=== PATIENT | female | born 1955 | race Caucasian/White ===

== ENCOUNTER 2017-01-14 17:52 | Emergency (ER) | payer OTHER ==
[~2017-01-14] VITALS: Ht 142.2 cm; Wt 90.0 kg
[2017-01-14 17:56] VITALS: Ht 142.2 cm; Wt 90.0 kg
[2017-01-14] MEDS ORDERED: morphine 4 MG/ML VIAL IM STA (19:23)
--- NOTE | 2017-01-14 19:43 | RADRPT ---
PROCEDURE: CT Head without. CLINICAL INDICATION: Occipital pain status post fall. TECHNIQUE: The study was performed utilizing a multi-slice, multidetector CT scanner. Direct spira l 1 mm axial sections were obtained through the head without the use of intravenous contrast materia l. 1 or more of the following dose reduction techniques were utilized: Automated exposure control, adjustment of the mA and/or kV according to patient's size, iterative reconstruction technique. Co titus and sagittal reformations were obtained. The images were reviewed on a PACS workstation. RADIATION DOSE: CTDIvol: 44.0 mGyDLP: 630.2 mGy-cm COMPARISON: No prior studies are available for comparison. FINDINGS: There is no intracranial hemorrhage, extra-axial fluid collection, mass lesion, midline shift or hyd rocephalus. The ventricles, sulci and cisterns are within normal limits. The white matter is unrem arkable. The ji-white matter differentiation is preserved. The basal cisterns are patent. The m idline structures are intact. The orbits, calvarium and extracranial soft tissues are normal in nakita earance. The visualized paranasal sinuses, mastoid air cells and middle ear cavities are normally ae rated. IMPRESSION: 1. No acute intracranial abnormality. No intracranial hemorrhage, extra-axial fluid collection, ma ss lesion or hydrocephalous. RPTAT: HGAS .Conrado Fischer MD, MD Date Time Electronically viewed and signed by .Conrado Fischer MD, MD on 01/14/2017 19:42 .S/
--- NOTE | 2017-01-14 20:06 | RADRPT ---
PROCEDURE: CT Cervical Spine. CLINICAL INDICATION: Pain status post fall TECHNIQUE: A CT of the cervical spine was performed on a multi-slice CT scanner utilizing high-res olution axial imaging from the skull base through the cervical thoracic junction. Sagittal, coronal , and multiplanar reformatted images were made. CTD I: 22.07 mGy and DLP: 391.5 mGy-cm One or more of the following dose reduction techniques were used: Automated exposure control. Adjustment of the mA and/or kV according to patient size. Use of iterative reconstruction technique. COMPARISON: None FINDINGS: There is straightening of the cervical lordosis. No vertebral body subluxation is seen. No fracture s are evident. The posterior elements are normally aligned. The surrounding soft tissues are kalyani l in appearance. The craniocervical junction is unremarkable. C2-C3: The disc height is maintained. Small uncovertebral spurring and mild facet arthropathy are s een at this level. There is mild to moderate bilateral neural foraminal stenosis. The central canal remains adequately patent. C3-C4: The disc height is maintained. Disc osteophyte complex, prominent left-sided uncovertebral s purring and severe left facet arthropathy are seen at this level. There is severe left and mild to m oderate right neural foraminal stenosis. The central canal remains adequately patent. C4-C5: The disc height is maintained. Broad-based central disc protrusion, prominent uncovertebral spurring and moderate right facet arthropathy are seen at this level. There is moderate to severe bi lateral neural foraminal stenosis. There is mild to moderate central canal stenosis. C5-C6: There is mild disc height loss. Disc osteophyte complex, prominent uncovertebral spurring, a nd mild facet arthropathy are seen at this level. There is severe left and moderate to severe right neural foraminal stenosis. There is mild to moderate central canal stenosis. C6-C7: There is moderate disc height loss with discogenic endplate changes. Disc osteophyte complex , prominent uncovertebral spurring and mild facet arthropathy are seen at this level. There is moder ate to severe bilateral neural foraminal stenosis. There is mild central canal stenosis. C7-T1: The disc height is maintained. Central canal and bilateral neural foramina are adequately pa tent. IMPRESSION: 1. No acute fracture or traumatic malalignment. 2. Multilevel moderate to severe central canal stenosis at C3-C4 through C6-C7, as described above. 3. Mild to moderate central canal stenosis at C4-C5 and C5-C6. Mild central canal stenosis at C6-C7 . RPTAT: HHO .Tatiana Coto MD, Date Time Electronically viewed and signed by .Tatiana Coto MD, on 01/14/2017 20:05 .O/
[2017-01-14] MEDS ORDERED: HYDR-906 PO (20:12)
[2017-01-14] MEDS ORDERED: NAPR-688 PO (20:14)
[2017-01-14] MEDS ORDERED: KETOROLAC 60 MG INJ IM STA (20:15)
--- NOTE | 2017-01-14 20:18 | ERD ---
ER Documentation Chief Complaint Date/Time DATE: 01/14/17 TIME: 20:16 Chief Complaint right arm pain/injury HPI 11-year-old female presents primarily with right shoulder pain after she slipped while stepping out of the first step of a stepladder. She is with family. She states that she did hit the back of her head but did not lose consciousness. She has pain in her right upper trapezius area radiating down to her shoulder. She is already wearing an arm sling. Denies nausea vomiting or neurological deficits. Would like a shot for the pain peer ROS All systems reviewed and are negative except as per history of present illness. Medications Home Meds Active Scripts Naproxen* (Naproxen*) 500 Mg Tablet, 500 MG PO BID Y for PAIN, #14 TAB Prov:YURIYFARAZMARY DO 01/14/17 Hydrocodone/Acetaminophen (Gunter 5-325 Tablet) 1 Each Tablet, 1 EACH PO Q6, #10 TAB Prov:YURIYFARAZMARY DO 01/14/17 Allergies Allergies: Coded Allergies: Penicillins (Verified Allergy, Intermediate, rash, 01/14/17) PMhx/Soc Medical and Surgical Hx: pt denies Medical Hx, pt denies Surgical Hx History of Surgery: Yes (hysterectomy '94) Anesthesia Reaction: No Hx Neurological Disorder: No Hx Respiratory Disorders: No Hx Cardiac Disorders: Yes (hyperlipidemia) Hx Psychiatric Problems: No Hx Miscellaneous Medical Probl: No Hx Alcohol Use: No Hx Substance Use: No Hx Tobacco Use: No Smoking Status: Never smoker Physical Exam Vitals Vital Signs Date Time Temp Pulse Resp B/P Pulse Ox O2 Delivery O2 Flow Rate FiO2 01/14/17 17:56 98.5 83 19 138/66 96 Physical Exam Const: [] Head: Atraumatic Eyes: Normal Conjunctiva ENT: Normal External Ears, Nose and Mouth. Neck: Full range of motion..~ No meningismus. Resp: Clear to auscultation bilaterally Cardio: Regular rate and rhythm, no murmurs Abd: Soft, non tender, non distended. Normal bowel sounds Skin: No petechiae or rashes Back: No midline or flank tenderness Ext: No cyanosis, or edema Neur: Awake and alert Psych: Normal Mood and Affect Results 24 hrs Current Medications Medications (Trade) Dose Ordered Sig/Berny Route PRN Reason Start Time Stop Time Status Last Admin Dose Admin Morphine Sulfate (morphine) 4 mg ONCE STAT IM 01/14/17 19:23 01/14/17 19:28 DC Procedures/MDM Shoulder contusion and head injury no loss of consciousness or signs of hemorrhage. Incidentally discovered on C-spine CT is multilevel spinal stenosis. Patient was given 4 mg injection of morphine intramuscularly. She has decreased pain I am also giving her a 60 mg IM Toradol injection. I am going to discharge her with naproxen and Gunter. Primary care follow-up in 2-3 days. I have printed her CT scans for her so she can follow-up with an orthospine doctor if she wishes for any continued spinal stenosis or possible radiculopathy CT head interpretation: I see no acute process. I see no hemorrhage, no mass- effect or midline shift, no skull fracture CT C-spine interpretation: There is multilevel spinal stenosis without any acute fracture dislocation. Departure Diagnosis: Primary Impression: Muscle strain of right shoulder region Additional Impressions: Neck sprain Cervical stenosis of spinal canal Head injury Condition: Stable Patient Instructions: HEAD INJURY, No Wake-Up (Adult), Shoulder Contusion Referrals: [facility] YOU HAVE RECEIVED A MEDICAL SCREENING EXAM AND THE RESULTS INDICATE THAT YOU DO NOT HAVE A CONDITION THAT REQUIRES URGENT TREATMENT IN THE EMERGENCY DEPARTMENT. FURTHER EVALUATION AND TREATMENT OF YOUR CONDITION CAN WAIT UNTIL YOU ARE SEEN IN YOUR DOCTORS OFFICE WITHIN THE NEXT 1-2 DAYS. IT IS YOUR RESPONSIBILITY TO MAKE AN APPOINTMENT FOR FOLOW-UP CARE. IF YOU HAVE A PRIMARY DOCTOR --you should call your primary doctor and schedule an appointment IF YOU DO NOT HAVE A PRIMARY DOCTOR YOU CAN CALL OUR PHYSICIAN REFERRAL HOTLINE AT IF YOU CAN NOT AFFORD TO SEE A PHYSICIAN YOU CAN CHOSE FROM THE FOLLOWING [facility] [address] [facility] [address] [facility] [address] [facility] [facility] [address] [facility] [address] [facility] [facility]. [address] Additional Instructions: Llame al doctor MAANA y bonita betzaida CARMELA PARA DENTRO DE 2-3 SANCHEZ.Dgale a la secretaria que nosotros le instruimos hacer esta carmela.Avise o llame si chavarria condicin se empeora antes de la carmela. Regresa aqui si peor o no mejor. MARY YAN DO Jan 14, 2017 20:18
--- NOTE | 2017-01-14 20:23 | RADRPT ---
PROCEDURE: XR Shoulder. CLINICAL INDICATION: 61-year of age, female. Right shoulder pain. Fall. TECHNIQUE: Three views of the right shoulder. Frontal views in internal and external rotation and transscapular Y view. COMPARISON: None available FINDINGS: Negative for evidence of acute fracture or dislocation. There is good range of motion in internal and external rotation. Mild osteoarthritis of the acromioclavicular joint. Coracoclavicular interval appears normal. There are no periarticular calcifications. The visualized lung is clear. IMPRESSION: Negative for evidence of acute fracture or dislocation of the right shoulder. RPTAT: HCTS Physician Ro Date Time Electronically viewed and signed by Physician Ro on 01/14/2017 20:23 /
[2017-01-14 20:48] VITALS: BP 151/70; PULSE 78; RESP 20
== END 2017-01-14 20:49 | disposition home or self-care (01) ==
LOC: FTE 17:52
DX: S46.911A Strain of unspecified muscle, fascia and tendon at shoulder and upper arm level, right arm, initial encounter (principal); S09.90XA Unspecified injury of head, initial encounter; S13.9XXA Sprain of joints and ligaments of unspecified parts of neck, initial encounter; M48.02 Spinal stenosis, cervical region; R51 Headache; W11.XXXA Fall on and from ladder, initial encounter; Y92.9 Unspecified place or not applicable
CPT/HCPCS: 70450; 72125; 73030; 96372; J2270; Z7502

== ENCOUNTER 2017-10-30 11:10 | Emergency (ER) | END 2017-10-30 12:45 | disposition home or self-care (01) ==